=== PATIENT | female | born 1935 | race Two or more races ===

== ENCOUNTER 2019-12-05 13:03 | Emergency (ER) | payer SELFPAY ==
[~2019-12-05] VITALS: Ht 162.6 cm; Wt 54.5 kg
[2019-12-05] MEDS ORDERED: ACETAMINOPHEN 325 MG TABLET PO ONE (16:45)
[2019-12-05 17:02] VITALS: BP 143/86
== END 2019-12-05 17:18 | disposition home or self-care (01) ==
LOC: EMS 13:04
DX: S13.4XXA Sprain of ligaments of cervical spine, initial encounter (principal); S00.93XA Contusion of unspecified part of head, initial encounter; E78.00 Pure hypercholesterolemia, unspecified; F17.200 Nicotine dependence, unspecified, uncomplicated; W01.0XXA Fall on same level from slipping, tripping and stumbling without subsequent striking against object, initial encounter; Y93.89 Activity, other specified; Y92.89 Other specified places as the place of occurrence of the external cause; Y99.8 Other external cause status
CPT/HCPCS: 70450; 72125